=== PATIENT | female | born 1985 | race Caucasian/White ===

== ENCOUNTER 2022-11-13 05:36 | Outpatient (CLI) | payer OTHER ==
[~2022-11-13] VITALS: Ht 170.2 cm; Wt 84.4 kg
[2022-11-13] MEDS ORDERED: LIRA0.6P SQ (15:37)
[2022-11-13] MEDS ORDERED: ADAL40PE SQ (15:37)
== END 2022-11-13 15:39 | disposition home or self-care (01) ==
LOC: PREOP 05:36
PROVIDERS: ATTEND Surgery
DX: Z01.818 Encounter for other preprocedural examination (principal)

== ENCOUNTER 2022-11-26 08:30 | Day surgery (SDC) | payer OTHER ==
[~2022-11-26] VITALS: Ht 170.2 cm; Wt 84.4 kg
[~2022-11-26 08:30] MED LIST: ADAL40PE SQ; LIRA0.6P SQ
[2022-11-26] MEDS ORDERED: LACTATED RINGERS 1,000 ML IV STA (08:31)
[2022-11-26 08:50] VITALS: BP 117/72
[2022-11-26] MEDS ORDERED: MIDAZOLAM 2 MG/2 ML (VERSED) VIAL ONE (09:31)
[2022-11-26] MEDS ORDERED: PROPOFOL INJECTION 50 ML IV ONE (09:31)
[2022-11-26] MEDS ORDERED: proPOfol 200 MG/20 ML (DIPRIVAN) VIAL IV ONE (09:57)
--- NOTE | 2022-11-26 10:08 | Discharge Inst-Simple/Standard ---
Discharge Inst-Standard Patient Instructions/Follow Up Plan of Care/Instructions/FU: 2 weeks isha Activity as Tolerated: Yes Discharge Diet: Regular Diet HETAL MUÑOZ DO Nov 26, 2022 10:08
--- NOTE | 2022-11-26 10:10 | Progress Note-Post Operative ---
Post-Operative Progess Note Surgeon (s)/Senior Data Integration Developer (s) Surgeon HETAL MUÑOZ DO Senior Data Integration Developer: na Pre-Operative Diagnosis bloody stools Post-Operative Diagnosis sigmoid polyps Procedure & Operative Findings Date of Procedure 11/26/22 Procedure Performed/Findings colonoscopy c snare polypectomy x 1 and bonnie inking tattoo Anesthesia Type per profile trimmer Estimated Blood Loss Estimated blood loss (mL): none Specimens/Packing Specimens Removed sigmoid polyp HETAL MUÑOZ DO Nov 26, 2022 10:10
[2022-11-26 10:13] VITALS: BP 104/63
[2022-11-26 10:20] VITALS: BP 104/63
[2022-11-26 10:40] VITALS: BP 104/63
--- NOTE | 2022-11-26 11:30 | Anesthesia-General Post-Op ---
MAC Patient Condition Mental Status/LOC: Same as Preop Cardiovascular: Satisfactory Nausea/Vomiting: Absent Respiratory: Satisfactory Pain: Controlled Complications: Absent Post Op Complications Complications None Follow Up Care/Instructions Patient Instructions None needed. Anesthesiology Discharge Order Discharge Order Patient is doing well, no complaints, stable vital signs, no apparent adverse anesthesia problems. No complications reported per nursing. ASHLEY GARCIA CRNA Nov 26, 2022 11:30
--- NOTE | 2022-11-26 13:11 | OPERATIVE REPORT ---
DATE OF SERVICE: 11/26/2022 PREOPERATIVE DIAGNOSIS: Bloody stools. POSTOPERATIVE DIAGNOSIS: Sigmoid polyp. PROCEDURE: Colonoscopy with snare polypectomy x1, Lanny ink tattoo. ANESTHESIA: Per RAT TRAPPER. SURGEON: Dr. Floyd. ESTIMATED BLOOD LOSS: None. COMPLICATIONS: None. INDICATIONS: The patient is a 37-year-old female who has been having bloody stool. She understands risks and benefits of procedure and wishes to proceed. Consent was signed in chart. DESCRIPTION OF PROCEDURE: The patient was taken to endoscopy suite, placed in left lateral recumbent position. Timeout was performed. Digital rectal exam was performed. No palpable polyps, masses or ulcerations. Scope was inserted in the rectum, advanced all the way to the cecum with minimal difficulty. Prep was adequate. Scope was slowly retracted back. No polyps, masses or ulcerations in the cecum, ascending, transverse, descending colon. Sigmoid colon had a large pedunculated polyp present, which snare polypectomy was performed. This was suctioned and removed. Scope was then reinserted to the point of polypectomy. Just distal to this area, Lanny ink tattoo was performed. Scope was then slowly retracted back to the rectum where it was also retroflexed noting no other pathology. Scope was returned to its normal position, slowly withdrawn until completely removed. The patient tolerated the procedure well without complications, taken to recovery room in stable condition. RECOMMENDATIONS: The patient [ ] recommend repeat colonoscopy in 3-6 months to make sure it has been completely eradicated or at least a flexible sigmoidoscopy. The patient will need repeat colonoscopy every 5 years due to large colon polyp as well for screening purposes after repeating the flex sig. The patient will follow up in 2 weeks to discuss pathology results. Job ID: [id number] DocumentID: [id number] Dictated Date: 11/26/2022 10:13:26 Nanofabrication Specialist Date: 11/26/2022 13:09:00 Dictated By: HETAL FLOYD DO
== END 2022-11-26 11:00 | disposition home or self-care (01) ==
LOC: ENDO 08:30
PROVIDERS: ATTEND Surgery
DX: D12.5 Benign neoplasm of sigmoid colon (principal); Z87.891 Personal history of nicotine dependence

== ENCOUNTER 2023-05-28 05:39 | Outpatient (CLI) | payer OTHER ==
[~2023-05-28] VITALS: Ht 170.2 cm; Wt 84.4 kg
== END 2023-05-28 16:33 | disposition home or self-care (01) ==
LOC: PREOP 05:39
PROVIDERS: ATTEND Surgery
DX: Z01.818 Encounter for other preprocedural examination (principal)